=== PATIENT | female | born 1995 | race African-American/Black ===

== ENCOUNTER 2021-08-18 17:47 | Emergency (ER) | payer OTHER ==
[~2021-08-18] VITALS: Ht 172.7 cm; Wt 122.5 kg
[2021-08-18] MEDS ORDERED: IBU600 MG PO ×2 (19:06→21:10)
[2021-08-18] MEDS ORDERED: AUGMENTIN 875-1 EACH PO ×2 (19:06→21:10)
[2021-08-19 04:06] VITALS: BP 114/81
== END 2021-08-18 20:45 | disposition home or self-care (01) ==
LOC: ER 17:47
DX: S41.151A Open bite of right upper arm, initial encounter (principal); Z88.1 Allergy status to other antibiotic agents; W54.0XXA Bitten by dog, initial encounter; Y93.89 Activity, other specified; Y92.89 Other specified places as the place of occurrence of the external cause; Y99.8 Other external cause status